=== PATIENT | female | born 1960 | race Caucasian/White ===

== ENCOUNTER 2018-06-17 | Outpatient (RCR) | END 2018-06-29 23:59 | DX: M25.561 Pain in right knee (principal) ==

== ENCOUNTER 2018-07-06 12:05 | Outpatient (CLI) ==
[2014-02-17 18:51] VITALS: BMI 34.3
--- NOTE | 2018-07-06 13:15 | US ---
EXAM: Bilateral lower extremity venous Doppler History: Bilateral lower extremity pain and edema. Technique: Multiple sonographic images through the bilateral lower extremities were obtained. Color duplex Doppler was used to interrogate vascular flow. Findings: The bilateral common femoral, greater saphenous, profunda, superficial femoral, popliteal, peroneal, posterior tibial and anterior tibial veins demonstrate spontaneous flow with normal compre ssion and normal augmentation. Impression: No sonographic evidence for deep venous thrombosis
== END 2018-07-06 12:06 | disposition home or self-care (01) ==
LOC: RAD 12:05
PROVIDERS: ATTEND Orthopaedic Surgery
DX: R60.0 Localized edema (principal)

== ENCOUNTER 2018-07-22 13:00 | Outpatient (RCR) ==
[2014-02-17 18:51] VITALS: BMI 34.3
--- NOTE | 2018-07-01 16:33 | RS.OPPTDN ---
Subjective Date of Note: 07/01/18 Visit #: 6 Number of visits approved by Insurance: 20 max Date of Evaluation: 06/17/18 Payer Source: Insurance Treatment Diagnosis: Right knee pain, Right knee stiffness, s/p Right TKA Current Subjective/complaints:: Patient reports tightness and soreness, but feels she is walking better. States she is working on bending knee and decreasing limp with ambulation. Pain Assessment - Pain Description Pain Location: Right knee Pain Description: Tightness, Aching Current Pain Intensity: mild to mod - Heat/Cryotherapy Treatment: Hot Pack ([id number] to the right LE prior to EX. Patient in supine. ) Interventions - Exercise/Activities/Manual Therapy Exercises/Activities: Assisted patient with knee flexion and extension. QS, HS , AP. Increased to 3# to SLR, and SLR/VMO, 3s/10reps each. Assisted heel slides and hip/knee flex/ext, and passive heel cord stretch. Increased to 8# for SAQ. Isometric hip add and isometric ankle inversion with hip IR, 3s/10reps each. Red theraband for resisted ankle df, hip add, and hip abd. In sitting, red theraband resisted ham curl and LAQ. Stationary bike, full revolutions forward and retro, no assist 7mins(not included in direct time). Began leg press 15# and 30#, multiple reps, then ankle df/pf 30#, 25reps. Ended with additional passive right knee flexion. Total minutes of Exercise: 40mins/47mins Manual Therapy: NA HOME EXERCISE PROGRAM: ankle pumps, SAQ's, SLR, standing HS curls, knee flexion in supine, and quad sets. Isometric hip add, isometric ankle inversion. - Objective Findings Observations,measurements,etc.: Passive right knee flexion 101 degrees in supine , and active to 94 degrees sitting ABS. - Charges Timed Code Treatment Minutes: 40mins Total Treatment Time: 62mins Procedures billed for this date of service:: HP, EX3 Assessment: Patient progressing well with strengthening and ROM. Patient Education: Body/Joint mechanics, Home Exercise Program Patient demonstrates compliance with HEP?: Yes Short Term Goals Goal #1: Pt Independent with HEP. Goal to be met by: 07/01/18 Progress towards Goal:: Met Goal #2: Right knee active flexion to 110 degrees. Goal to be met by: 07/01/18 Progress towards Goal:: Partially Met Goal #3: Right knee to demonstrate full extension. Goal to be met by: 07/01/18 Progress towards Goal:: Met Freelance Writer Goals Goal #1: Pt knows HEP and to continue ex's to maintain functional level at D/C. Goal to be met by: 08/01/18 Progress towards goal: Progressing Goal #2: Score on LE functional scale improved to 30% impairment or less. Goal to be met by: 08/01/18 Goal #3: Pt to amb. w/o Asst device, community distances with min. gait deviation. Goal to be met by: 08/01/18 Progress towards goal: Partially Met Goal #4: Right knee AROM WFL's to perform all ADL's without difficulty. Goal to be met by: 08/01/18 Progress towards goal: Progressing Plan Dates of Freelance Writer Goals: 08/01/18 Expiration date of current Insurance Approval:: 08/01/18 PLAN: Continue progressing strength and ROM of the right LE to improve gait pattern and increase functional level.
--- NOTE | 2018-07-03 16:21 | RS.OPPTDN ---
Subjective Date of Note: 07/03/18 Visit #: 7 Number of visits approved by Insurance: 20 visit max Date of Evaluation: 06/17/18 Payer Source: Insurance Treatment Diagnosis: Right knee pain, Right knee stiffness, s/p Right TKA Current Subjective/complaints:: Patient reports doing better each day. States was seen for a follow-up and pat were removed. Pain Assessment - Pain Description Pain Location: Right knee Pain Description: soreness Current Pain Intensity: mild - Heat/Cryotherapy Treatment: Hot Pack ([id number] to the right LE prior to EX. Patient in supine. ) Interventions - Exercise/Activities/Manual Therapy Exercises/Activities: Assisted patient with knee flexion and extension. QS, HS , AP. 3# to SLR, 3s/10reps each. Assisted heel slides and hip/knee flex/ext, and passive heel cord stretch. Increased to 10# for SAQ. Isometric hip add and isometric ankle inversion with hip IR, 3s/10reps each. Red theraband for resisted ankle df, hip add, and hip abd. Passive end range flexion stretching. In sitting, red theraband resisted ham curl and LAQ. Stationary bike, full revolutions forward and retro, no assist 7mins(not included in direct time). Total minutes of Exercise: 39mins/46mins Manual Therapy: NA HOME EXERCISE PROGRAM: ankle pumps, SAQ's, SLR, standing HS curls, knee flexion in supine, and quad sets. Isometric hip add, isometric ankle inversion. - Objective Findings Observations,measurements,etc.: Passive right knee flexion to 114 degrees. - Charges Timed Code Treatment Minutes: 39mins Total Treatment Time: 60mins Procedures billed for this date of service:: HP, EX3 Assessment: Patient progressing with strengthening and with ROM of the right knee. Patient Education: Body/Joint mechanics, Home Exercise Program Patient demonstrates compliance with HEP?: Yes Short Term Goals Goal #1: Pt Independent with HEP. Goal to be met by: 07/01/18 Progress towards Goal:: Met Goal #2: Right knee active flexion to 110 degrees. Goal to be met by: 07/01/18 Progress towards Goal:: Partially Met Goal #3: Right knee to demonstrate full extension. Goal to be met by: 07/01/18 Progress towards Goal:: Met Senior Living Goals Goal #1: Pt knows HEP and to continue ex's to maintain functional level at D/C. Goal to be met by: 08/01/18 Progress towards goal: Progressing Goal #2: Score on LE functional scale improved to 30% impairment or less. Goal to be met by: 08/01/18 Goal #3: Pt to amb. w/o Asst device, community distances with min. gait deviation. Goal to be met by: 08/01/18 Progress towards goal: Partially Met Goal #4: Right knee AROM WFL's to perform all ADL's without difficulty. Goal to be met by: 08/01/18 Progress towards goal: Progressing Plan Dates of Revolving Field Assembler Goals: 08/01/18 Expiration date of current Insurance Approval:: 08/01/18 PLAN: Progress with strengthening and ROM of the right LE to increase patient functional activity level.
--- NOTE | 2018-07-07 13:07 | RS.OPPTDN ---
Subjective Date of Note: 07/06/18 Visit #: 8 Number of visits approved by Insurance: NA Date of Evaluation: 06/17/18 Payer Source: Insurance Treatment Diagnosis: Right knee pain, Right knee stiffness, s/p Right TKA Current Subjective/complaints:: States she did some laundry today. States she will have Venous Scan of the right LE today at 12:30. She reports no worry of a blood clot. She hopes she can discontinue Aspirin after today. States she is concentrating on trying to walk without a limp. - Heat/Cryotherapy Treatment: Hot Pack Comments:: X 15 mins to right quads prior to exercises. Interventions - Exercise/Activities/Manual Therapy Exercises/Activities: Assisted patient with knee flexion and extension. QS, HS , AP. 3# to SLR, 3s/10reps each. Assisted heel slides and hip/knee flex/ext, and passive heel cord stretch. 10# for SAQ. Isometric hip add and isometric ankle inversion with hip IR, 3s/10reps each. Green theraband for resisted ankle df, hip add, and hip abd. Passive end range flexion stretching. In sitting, green theraband resisted ham curl and LAQ. Stationary bike, full revolutions forward and retro, no assist 8 mins(not included in direct time). Total minutes of Exercise: 48 mins Manual Therapy: Receives Gr[employer] I Joint Mobilizations into distraction to the femoral-tibia joint to facilitate knee flexion. HOME EXERCISE PROGRAM: ankle pumps, SAQ's, SLR, standing HS curls, knee flexion in supine, and quad sets. Isometric hip add, isometric ankle inversion. - Objective Findings Observations,measurements,etc.: Active right knee flexion 98 degrees. Sondra is ambulating without an assitive device. She demonstrates slight decreased stance on the right LE, prior to exercise. Following exercise, she exhibits less stance on the right LE. - Charges Timed Code Treatment Minutes: 48 mins Total Treatment Time: 58 mins Procedures billed for this date of service:: EX3 Assessment: Patient tolerates all exercises very well. She is determined to regain as much AROM of the right knee as she can. She is compliant with HEP and icing. Patient demonstrates compliance with HEP?: Yes Short Term Goals Goal #1: Pt Independent with HEP. Goal to be met by: 07/01/18 Progress towards Goal:: Met Goal #2: Right knee active flexion to 110 degrees. Goal to be met by: 07/01/18 Progress towards Goal:: Progressing Comments:: AROM today to 98 degrees flexion. Goal #3: Right knee to demonstrate full extension. Goal to be met by: 07/01/18 Progress towards Goal:: Met Livestock Breeder Goals Goal #1: Pt knows HEP and to continue ex's to maintain functional level at D/C. Goal to be met by: 08/01/18 Progress towards goal: Progressing Goal #2: Score on LE functional scale improved to 30% impairment or less. Goal to be met by: 08/01/18 Goal #3: Pt to amb. w/o Asst device, community distances with min. gait deviation. Goal to be met by: 08/01/18 Progress towards goal: Progressing Comments: Amount of gait deviation depends on activity and pain. Goal #4: Right knee AROM WFL's to perform all ADL's without difficulty. Goal to be met by: 08/01/18 Progress towards goal: Progressing Plan Dates of Nursing Home Goals: 08/01/18 Expiration date of current Insurance Approval:: NA PLAN: Progress exercises to increase right knee AROM and improve function.
--- NOTE | 2018-07-08 14:54 | RS.OPPTDN ---
Subjective Date of Note: 07/08/18 Visit #: 9 Number of visits approved by Insurance: 20 Date of Evaluation: 06/17/18 Payer Source: Insurance Treatment Diagnosis: Right knee pain, Right knee stiffness, s/p Right TKA Current Subjective/complaints:: Patient reports an increase in tightness of the right knee today. States she walked more the last 2 days. Pain Assessment - Pain Description Pain Location: right knee Pain Description: Tightness Current Pain Intensity: mild - Heat/Cryotherapy Treatment: Hot Pack ([id number] to the right knee prior to EX. Patient in supine. ) Interventions - Exercise/Activities/Manual Therapy Exercises/Activities: Assisted patient with knee flexion and extension. QS, HS , AP. 3# to SLR, 3s/10reps each. Assisted heel slides and hip/knee flex/ext, and passive heel cord stretch. 10# for SAQ. Isometric hip add and isometric ankle inversion with hip IR, 3s/10reps each. Green theraband for resisted ankle df, hip add, and hip abd. Passive end range flexion stretching. In sitting, green theraband resisted ham curl and LAQ. Stationary bike, full revolutions forward and retro, no assist 7 mins(not included in direct time). Leg press 15# multiple reps. Total minutes of Exercise: 40mins/47mins Manual Therapy: NA HOME EXERCISE PROGRAM: ankle pumps, SAQ's, SLR, standing HS curls, knee flexion in supine, and quad sets. Isometric hip add, isometric ankle inversion. - Charges Timed Code Treatment Minutes: 40mins Total Treatment Time: 62mins Procedures billed for this date of service:: HP, EX3 Assessment: Patient with increased joint tightness today. Focus of treatment session is ROM/end range stretching. Patient Education: Body/Joint mechanics Comments: Patient advised to use stationary bike for a few minutes each day. Patient demonstrates compliance with HEP?: Yes Short Term Goals Goal #1: Pt Independent with HEP. Goal to be met by: 07/01/18 Progress towards Goal:: Met Goal #2: Right knee active flexion to 110 degrees. Goal to be met by: 07/01/18 Progress towards Goal:: Partially Met Goal #3: Right knee to demonstrate full extension. Goal to be met by: 07/01/18 Progress towards Goal:: Met Jail Goals Goal #1: Pt knows HEP and to continue ex's to maintain functional level at D/C. Goal to be met by: 08/01/18 Progress towards goal: Progressing Goal #2: Score on LE functional scale improved to 30% impairment or less. Goal to be met by: 08/01/18 Goal #3: Pt to amb. w/o Asst device, community distances with min. gait deviation. Goal to be met by: 08/01/18 Progress towards goal: Partially Met Goal #4: Right knee AROM WFL's to perform all ADL's without difficulty. Goal to be met by: 08/01/18 Progress towards goal: Progressing Plan Dates of Telephoner Goals: 08/01/18 Expiration date of current Insurance Approval:: 08/01/18 PLAN: Progress with strength and ROM of the right knee to increase functional activity level.
--- NOTE | 2018-07-10 16:04 | RS.OPPTDN ---
Subjective Date of Note: 07/10/18 Visit #: 10 Number of visits approved by Insurance: 20 visit limit Date of Evaluation: 06/17/18 Payer Source: Insurance Treatment Diagnosis: Right knee pain, Right knee stiffness, s/p Right TKA Current Subjective/complaints:: Patient expresses she is upset today due to continued swelling and discomfort in the right knee joint. States she has difficulty with getting comfortable at night and her sleep is disrupted. Pain Assessment - Pain Description Pain Location: right knee Pain Description: Tightness, Aching Current Pain Intensity: moderate Other Comments regarding Pain:: Patient reports mod to high "throbbing" pain at night that limits her sleep. - Heat/Cryotherapy Treatment: Hot Pack ([id number] to the right LE prior to EX. Patient in supine. ) Interventions - Exercise/Activities/Manual Therapy Exercises/Activities: Assisted patient with knee flexion and extension. QS, HS , AP. 3# to SLR, 3s/10reps each. Assisted heel slides and hip/knee flex/ext, and passive heel cord stretch. Passive end range flexion stretching. [employer] for PROM. Then manual passive flexion with and without contract/relax. Stationary bike, full revolutions forward and retro, 4mins (not included in direct time). Ended with additional passive stretching of right knee flexion. Total minutes of Exercise: 40mins Manual Therapy: NA HOME EXERCISE PROGRAM: ankle pumps, SAQ's, SLR, standing HS curls, knee flexion in supine, and quad sets. Isometric hip add, isometric ankle inversion. - Charges Timed Code Treatment Minutes: 40mins Total Treatment Time: 20mins Procedures billed for this date of service:: HP, EX3 Assessment: Patient with some increased joint tightness and discomfort today. She should benefit from reducing swelling to decrease her pain level. Patient Education: Body/Joint mechanics, Home Exercise Program, Home Safety, Activity Modification Comments: Patient advised to rest and focus on reducing swelling. Discussion of resuming use of DELFINA wrap or compression hose to reduce swelling. Also to increase stationary bike at home. Patient demonstrates compliance with HEP?: Yes Short Term Goals Goal #1: Pt Independent with HEP. Goal to be met by: 07/01/18 Progress towards Goal:: Met Goal #2: Right knee active flexion to 110 degrees. Goal to be met by: 07/01/18 Progress towards Goal:: Partially Met Goal #3: Right knee to demonstrate full extension. Goal to be met by: 07/01/18 Progress towards Goal:: Met Processing Spec Goals Goal #1: Pt knows HEP and to continue ex's to maintain functional level at D/C. Goal to be met by: 08/01/18 Progress towards goal: Progressing Goal #2: Score on LE functional scale improved to 30% impairment or less. Goal to be met by: 08/01/18 Goal #3: Pt to amb. w/o Asst device, community distances with min. gait deviation. Goal to be met by: 08/01/18 Progress towards goal: Partially Met Goal #4: Right knee AROM WFL's to perform all ADL's without difficulty. Goal to be met by: 08/01/18 Progress towards goal: Progressing Plan Dates of Processing Spec Goals: 08/01/18 Expiration date of current Insurance Approval:: 08/01/18 PLAN: Progress with ROM and strengthening to increase patients functional activity level.
--- NOTE | 2018-07-13 16:29 | RS.OPPTDN ---
Subjective Date of Note: 07/13/18 Visit #: 11 Number of visits approved by Insurance: 20 Date of Evaluation: 06/17/18 Payer Source: Insurance Treatment Diagnosis: Right knee pain, Right knee stiffness, s/p Right TKA Current Subjective/complaints:: Patient reports tightness right knee joint, but feels like it is doing better today. States she has difficulty resting at night due to discomfort. Pain Assessment - Pain Description Pain Location: right knee Pain Description: Tightness, Aching Current Pain Intensity: mild to mod - Heat/Cryotherapy Treatment: Hot Pack ([id number] to the right knee prior to EX. Patient in supine. ) Interventions - Exercise/Activities/Manual Therapy Exercises/Activities: Focus on PROM of the right knee. QS, HS, AP. 2# to SLR, 3s/10reps. Assisted heel slides. Red theraband resisted hip abd and add. Isometric ankle inversion with hip IR and hip add, both with ball. Sitting red theraband for ham curl. Bilateral LAQ with ball. Stationary bike, full revolutions forward and retro, 7mins (not included in direct time). Leg press increased to 30#, 30reps at slow pace. Ended with additional passive stretching of right knee flexion. Total minutes of Exercise: 39mins/46mins Manual Therapy: NA HOME EXERCISE PROGRAM: ankle pumps, SAQ's, SLR, standing HS curls, knee flexion in supine, and quad sets. Isometric hip add, isometric ankle inversion. - Objective Findings Observations,measurements,etc.: Passive right knee flexion to 114 degrees with mod to high discomfort. (Patient demos left knee active flexion to 118 degrees) - Charges Timed Code Treatment Minutes: 39mins Total Treatment Time: 61mins Procedures billed for this date of service:: HP, EX3 Assessment: Patient continues to demonstrate progress with strength and ROM. Patient demonstrates compliance with HEP?: Yes Short Term Goals Goal #1: Pt Independent with HEP. Goal to be met by: 07/01/18 Progress towards Goal:: Met Goal #2: Right knee active flexion to 110 degrees. Goal to be met by: 07/01/18 Progress towards Goal:: Partially Met Goal #3: Right knee to demonstrate full extension. Goal to be met by: 07/01/18 Progress towards Goal:: Met [facility] Goals Goal #1: Pt knows HEP and to continue ex's to maintain functional level at D/C. Goal to be met by: 08/01/18 Progress towards goal: Progressing Goal #2: Score on LE functional scale improved to 30% impairment or less. Goal to be met by: 08/01/18 Goal #3: Pt to amb. w/o Asst device, community distances with min. gait deviation. Goal to be met by: 08/01/18 Progress towards goal: Partially Met Goal #4: Right knee AROM WFL's to perform all ADL's without difficulty. Goal to be met by: 08/01/18 Progress towards goal: Progressing Plan Dates of Landscaping Supervisor Goals: 08/01/18 Expiration date of current Insurance Approval:: 08/01/18 PLAN: Progress with strengthening and ROM to increase patients functional activity level.
--- NOTE | 2018-07-17 14:21 | RS.OPPTDN ---
Subjective Date of Note: 07/15/18 Visit #: 12 Number of visits approved by Insurance: 20 Date of Evaluation: 06/17/18 Payer Source: Insurance Treatment Diagnosis: Right knee pain, Right knee stiffness, s/p Right TKA Current Subjective/complaints:: Patient reports she is noticing improvement in right knee ROM and in her walking. Pain Assessment - Pain Description Pain Location: Right knee Current Pain Intensity: mild - Heat/Cryotherapy Treatment: Hot Pack ([id number] to the right knee prior to EX. Patient in supine. ) Interventions - Exercise/Activities/Manual Therapy Exercises/Activities: Focus on PROM of the right knee. QS, HS. 2# SLR, 3s/ 10reps. Sitting red theraband for ham curl. Bilateral LAQ with ball. [employer] for attended PROM slowly increasing flexion. Began Isometric rehab 6s/5reps at differnent angles between 90 and 60 degrees flexion. Isokinetic rehab 5s/5reps at speeds between 30deg/sec and 90deg/sec. Stationary bike, full revolutions forward and retro, 8mins (not included in direct time). Ended with additional passive stretching of right knee flexion. Total minutes of Exercise: 34mins/42mins Manual Therapy: NA HOME EXERCISE PROGRAM: ankle pumps, SAQ's, SLR, standing HS curls, knee flexion in supine, and quad sets. Isometric hip add, isometric ankle inversion. - Objective Findings Observations,measurements,etc.: Passive right knee flexion 115 to 117 degrees. - Charges Timed Code Treatment Minutes: 34mins Total Treatment Time: 57mins Procedures billed for this date of service:: HP, EX2 Assessment: Patient progressing well with ROM. Patient Education: Home Exercise Program Short Term Goals Goal #1: Pt Independent with HEP. Goal to be met by: 07/01/18 Progress towards Goal:: Met Goal #2: Right knee active flexion to 110 degrees. Goal to be met by: 07/01/18 Progress towards Goal:: Partially Met Goal #3: Right knee to demonstrate full extension. Goal to be met by: 07/01/18 Progress towards Goal:: Met Half-Way Goals Goal #1: Pt knows HEP and to continue ex's to maintain functional level at D/C. Goal to be met by: 08/01/18 Progress towards goal: Progressing Goal #2: Score on LE functional scale improved to 30% impairment or less. Goal to be met by: 08/01/18 Goal #3: Pt to amb. w/o Asst device, community distances with min. gait deviation. Goal to be met by: 08/01/18 Progress towards goal: Partially Met Goal #4: Right knee AROM WFL's to perform all ADL's without difficulty. Goal to be met by: 08/01/18 Progress towards goal: Progressing Plan Dates of Development Lead Goals: 08/01/18 Expiration date of current Insurance Approval:: 08/01/18 PLAN: Progress with strengthening and ROM to increase patients functional mobility.
--- NOTE | 2018-07-17 14:37 | RS.OPPTDN ---
Subjective Date of Note: 07/17/18 Visit #: 13 Number of visits approved by Insurance: 20 Date of Evaluation: 06/17/18 Payer Source: Insurance Treatment Diagnosis: Right knee pain, Right knee stiffness, s/p Right TKA Current Subjective/complaints:: Patient reports continued improvement in right knee ROM. Reports very little pain. States she has mild discomfort at medial hamstring attachment and with end range stretching. Pain Assessment - Pain Description Pain Location: Right knee Current Pain Intensity: mild - Heat/Cryotherapy Treatment: Hot Pack ([id number] to the right LE prior to EX. Patient in supine. ) Interventions - Exercise/Activities/Manual Therapy Exercises/Activities: Focus today on assisted stretching/PROM of the right knee. QS, HS. 2# SLR, 3s/10reps. 2# for SLR circles cw and ccw. Green theraband resisted ankle df and ham curl. Red theraband for resistied hip add and abd. Bilateral SAQ with ball. Isometric hip flexion and isometric ankle inversion, both with ball. Standing at handrail, 2# to right ankle during mini- squats, right hip flexion, hip abd, and ham curl, all 10reps. Stationary bike, full revolutions forward and retro, 6mins (not included in direct time). Ended with additional passive stretching of right knee flexion in supine and in sitting. Green theraband resisted ham curl, 3s/10reps. Total minutes of Exercise: 39mins/45mins Manual Therapy: NA HOME EXERCISE PROGRAM: ankle pumps, SAQ's, SLR, standing HS curls, knee flexion in supine, and quad sets. Isometric hip add, isometric ankle inversion. - Objective Findings Observations,measurements,etc.: Passive right knee flexion to 115 degrees - Charges Timed Code Treatment Minutes: 39mins Total Treatment Time: 60mins Procedures billed for this date of service:: HP, EX3 Assessment: Patient progressing well and will return to physician for a follow- up next week. She feels like she will be released to return to work. Patient Education: Home Exercise Program Patient demonstrates compliance with HEP?: Yes Short Term Goals Goal #1: Pt Independent with HEP. Goal to be met by: 07/01/18 Progress towards Goal:: Met Goal #2: Right knee active flexion to 110 degrees. Goal to be met by: 07/01/18 Progress towards Goal:: Partially Met (Active right knee flexion 95-96 degrees.) Goal #3: Right knee to demonstrate full extension. Goal to be met by: 07/01/18 Progress towards Goal:: Met Retirement Goals Goal #1: Pt knows HEP and to continue ex's to maintain functional level at D/C. Goal to be met by: 08/01/18 Progress towards goal: Progressing Goal #2: Score on LE functional scale improved to 30% impairment or less. Goal to be met by: 08/01/18 Goal #3: Pt to amb. w/o Asst device, community distances with min. gait deviation. Goal to be met by: 08/01/18 Progress towards goal: Met (Walking without AD and demos min to slight gait deviation.) Goal #4: Right knee AROM WFL's to perform all ADL's without difficulty. Goal to be met by: 08/01/18 Progress towards goal: Progressing Plan Dates of Retirement Goals: 08/01/18 Expiration date of current Insurance Approval:: 08/01/18 PLAN: Continue progression of strength and ROM of the right LE.
--- NOTE | 2018-07-20 16:29 | RS.OPPTDN ---
Subjective Date of Note: 07/20/18 Visit #: 14 Number of visits approved by Insurance: 20 Date of Evaluation: 06/17/18 Payer Source: Insurance Treatment Diagnosis: Right knee pain, Right knee stiffness, s/p Right TKA Current Subjective/complaints:: Patient reports improvement in walking and with ROM of the right knee. Reports increased swelling/joint tightness with walking longer distance during shopping. States she will see physician tomorrow for a follow-up and anticipates release for return to work next week. Pain Assessment - Pain Description Pain Location: Right knee Pain Description: Tightness Current Pain Intensity: mild, increases with passive end range stretch - Heat/Cryotherapy Treatment: Hot Pack ([id number] to the right LE prior to EX. Patient in supine. ) Interventions - Exercise/Activities/Manual Therapy Exercises/Activities: Focus of session is stretching/PROM of the right knee. In sitting, isometrics for contract/relax in knee flexion and extension and passive stretching. Stationary bike, full revolutions forward and retro, 6mins ( not included in direct time). Ended with additional passive stretching of right knee flexion in supine and in sitting. Reviewed HEP. Measurements taken. Total minutes of Exercise: 35mins/41mins Manual Therapy: NA HOME EXERCISE PROGRAM: ankle pumps, SAQ's, SLR, standing HS curls, knee flexion in supine, and quad sets. Isometric hip add, isometric ankle inversion. - Objective Findings Observations,measurements,etc.: Active right knee flexion 106 degrees. Passive right knee flexion 120 degrees with aggressive stretch and discomfort reported. MMT: right quads 5/5 and right hamstrings 4+/5. - Charges Timed Code Treatment Minutes: 35mins Total Treatment Time: 56mins Procedures billed for this date of service:: HP, EX2 Assessment: Patient has progressed well. Patient Education: Home Exercise Program Patient demonstrates compliance with HEP?: Yes Short Term Goals Goal #1: Pt Independent with HEP. Goal to be met by: 07/01/18 Progress towards Goal:: Met Goal #2: Right knee active flexion to 110 degrees. Goal to be met by: 07/01/18 Progress towards Goal:: Partially Met (Active right knee flexion 106 degrees.) Goal #3: Right knee to demonstrate full extension. Goal to be met by: 07/01/18 Progress towards Goal:: Met [employer] Goals Goal #1: Pt knows HEP and to continue ex's to maintain functional level at D/C. Goal to be met by: 08/01/18 Progress towards goal: Met Goal #2: Score on LE functional scale improved to 30% impairment or less. Goal to be met by: 08/01/18 Progress towards goal: Progressing Goal #3: Pt to amb. w/o Asst device, community distances with min. gait deviation. Goal to be met by: 08/01/18 Progress towards goal: Met (Walking without AD and demos min to slight gait deviation.) Goal #4: Right knee AROM WFL's to perform all ADL's without difficulty. Goal to be met by: 08/01/18 Progress towards goal: Progressing Plan Dates of Nursing Home Goals: 08/01/18 Expiration date of current Insurance Approval:: 08/01/18 PLAN: Patient to see physician tomorrow with discharge anticipated this week.
--- NOTE | 2018-07-22 15:07 | RS.OPPTDN ---
Subjective Date of Note: 07/22/18 Visit #: 15 Number of visits approved by Insurance: 20 Date of Evaluation: 06/17/18 Payer Source: Insurance Treatment Diagnosis: Right knee pain, Right knee stiffness, s/p Right TKA Current Subjective/complaints:: Patient reports she feels she has progressed well with therapy. States she continues to see improvement in ROM, pain, joint stiffness, and gait pattern. She reports being up most of the day cleaning her home without increased pain or stiffness. States she should be scheduled for all return to work tests this week, and hopes to start back the first of next week. Pain Assessment - Pain Description Pain Location: Right knee Pain Description: Tightness Current Pain Intensity: 0 Worst Pain Intensity: mild at night Other Comments regarding Pain:: Discomfort at end range with stretching. - Heat/Cryotherapy Treatment: Hot Pack ([id number] to the right knee prior to EX. Patient in supine. ) Interventions - Exercise/Activities/Manual Therapy Exercises/Activities: Focus of session is stretching/PROM of the right knee. In sitting, isometrics for contract/relax in knee flexion and extension and passive stretching. 7# SAQ 4s/10reps. 3# SLR, SLR/VMO, and hip abd, 2s/10reps each. Blue theraband for resisted ankle df, ham curl, hip abd, and hip add, 2s/ 10reps each. Stationary bike, full revolutions forward and retro, 7mins (not included in direct time). In sitting, blue theraband for ham curl and 4# LAQ, 3s/10reps each. Ended with additional passive stretching of right knee flexion in supine and in sitting. Reviewed HEP and patient given blue theraband for progression of resistive exercises. Demonstrated passive extension hangs. Measurements taken. Total minutes of Exercise: 40mins/47mins Manual Therapy: NA HOME EXERCISE PROGRAM: ankle pumps, SAQ's, SLR, standing HS curls, knee flexion in supine, and quad sets. Isometric hip add, isometric ankle. Green and blue therabands for resisted ankle df and ham curls. - Objective Findings Observations,measurements,etc.: Active right knee flexion to 117 degrees and passive right knee flexion to 122 degrees. Measurements taken in supine and following aggressive stretching. - Charges Timed Code Treatment Minutes: 40mins Total Treatment Time: 62mins Procedures billed for this date of service:: HP, EX3 Assessment: Patient has progressed well and met all treatment goals. She reports doing well with ADL's and ambulation. She will continue HEP following discharge. Patient Education: Home Exercise Program Patient demonstrates compliance with HEP?: Yes Short Term Goals Goal #1: Pt Independent with HEP. Goal to be met by: 07/01/18 Progress towards Goal:: Met Goal #2: Right knee active flexion to 110 degrees. Goal to be met by: 07/01/18 Progress towards Goal:: Met (Active right knee flexion 106 degrees.) Goal #3: Right knee to demonstrate full extension. Goal to be met by: 07/01/18 Progress towards Goal:: Met [facility] Goals Goal #1: Pt knows HEP and to continue ex's to maintain functional level at D/C. Goal to be met by: 08/01/18 Progress towards goal: Met Goal #2: Score on LE functional scale improved to 30% impairment or less. Goal to be met by: 08/01/18 Progress towards goal: Met Goal #3: Pt to amb. w/o Asst device, community distances with min. gait deviation. Goal to be met by: 08/01/18 Goal #4: Right knee AROM WFL's to perform all ADL's without difficulty. Goal to be met by: 08/01/18 Progress towards goal: Met Plan Dates of [facility] Goals: 08/01/18 Expiration date of current Insurance Approval:: 08/01/18 PLAN: Discharge with HEP.
--- NOTE | 2018-07-22 15:10 | RS.QUICKDC ---
Discharge from PT Date of Discharge: 07/22/18 Number of Visits: 15 Reason for Discharge: Patient progressed well and benefitted from treatment following a right TKA. She reported improvement in strength, ROM, pain, ambulation, and functional activity level. She met all treatment goals and was prepared to return to work. The patient had a release to work with no restrictions fron her physician. Discharged with HEP.
== END 2018-07-30 23:59 ==
PROVIDERS: ATTEND Orthopaedic Surgery
DX: M25.561 Pain in right knee (principal); M25.661 Stiffness of right knee, not elsewhere classified; R26.9 Unspecified abnormalities of gait and mobility; Z47.1 Aftercare following joint replacement surgery; Z96.651 Presence of right artificial knee joint